=== PATIENT | female | born 2000 | race Caucasian/White ===

== ENCOUNTER 2022-11-04 10:55 | Day surgery (SDC) | payer OTHER ==
[~2022-11-04] VITALS: Ht 149.9 cm; Wt 63.0 kg
[2022-11-04] VITALS (11 sets, daily range): BP systolic 98–132; BP diastolic 68–88; PULSE 66–89; TEMP 97.6–98.6
--- NOTE | 2022-11-04 09:56 | NUR ---
0925-DR. VILLA OFFICE CALLED STATING PATIENT WAS SEEN AT [facility] ED FOR BILATERAL KIDNEY STONE OBSTRUCTIONS. DR. VILLA WILL DIRECT ADMIT PATIENT OUTPATIENT STATUS FOR PAIN CONTROL AND FOR PROCEDURE LATER THIS AFTERNOON. PT. COMING POV FROM [facility].
--- NOTE | 2022-11-04 12:00 | NUR ---
PT ON THE FLOOR APPROX 1130, AT BEDSIDE. PT IS A DIRECT ADMIT FROM [facility] AND DROVE SELF TO [facility]. PT ARRIVED WITH IV IN LEFT AC FROM [facility] ALREADY STARTED. PT A&OX4, LUNGS CTA AND REPORTS MILD FLANK PAIN THAT IS TOLERABLE AT THIS TIME. PT UPDATED ON TREAMTENT PLAN AND NOTIFIED OF NPO STATUS, VERBALIZED UNDERSTANDING. PT DENIES NEEDS AT THIS TIME AND ORIETNED TO ROOM. BED IN LOWEST POSITION AND CALL LIGHT IN REACH
--- NOTE | 2022-11-04 14:00 | NUR ---
PT REPORTS INCREASED FLANK PAIN RATING IT 5/10. DR VILLA CALLED WITH NO ANSWER. PT OFFERED HEAT PACK AND OTHER THERAPEUTIC TREATMENT FOR PAIN AND DENIES REPORTING THAT MEDS WILL HELP.
--- NOTE | 2022-11-04 14:30 | NUR ---
DR VILLA CALLED SECOND TIME WITH NO ANSWER. PT REPORTS PAIN IS TOLERABLE BUT HAS INCREASED AND MAKING PT UNCOMFORTABLE.
--- NOTE | 2022-11-04 17:37 | NUR ---
PT RESTING IN BED WITH SPOUSE.
--- NOTE | 2022-11-04 18:04 | NUR ---
LR MIGUEL FOR PROCEDURE. PT GIVEN TO CHANGE AND OR NURSE ON THE FLOOR TO TRANSFER PT VIA BED TO OR
--- NOTE | 2022-11-04 19:02 | NUR ---
REPORT GIVEN TO DOUG WALDRON
[2022-11-04] MEDS ORDERED: PYRIDIUM 100MG100 MG PO ×2 (19:38→20:07)
[2022-11-04] MEDS ORDERED: NORCO 325 MG-51 TAB PO ×2 (19:38→20:07)
--- NOTE | 2022-11-04 22:35 | NUR ---
ASSESSMENT COMPLETE FOR IRRIGATOR GRAVITY FLOW. PT STABLE POST-OP. VSS. PT DENIED GENERAL PAIN, CHEST PAIN, PALPITATIONS, SOB, N,V,D OR DIZZINESS. PT ABLE TO EAT, DRINK AND URINATE WITH NO ISSUES. DISCHARGE PAPERWORK AND INSTRUCTIONS REVIEWED WITH PT AND SPOUSE. ALL QUESTIONS AND CONCERNS ADDRESSED. IV TO LEFT AC REMOVED, CATHETER TIP INTACT. PT WHEELED OUT OF THE FACILITY BY AID, WITH HER BY HER SIDE.
== END 2022-11-04 22:35 | disposition home or self-care (01) ==
LOC: SDCO 10:55 → MEDICAL 10:57 → SDCO 10:57 → MEDICAL 11:00 → SDCO 18:00
DX: N20.1 Calculus of ureter (principal); F17.290 Nicotine dependence, other tobacco product, uncomplicated
CPT/HCPCS: OP; C1769; C2617; J0690; J1100; J2405; J2704; J2765; J3010; Q9967

== ENCOUNTER 2023-05-01 13:27 | Emergency (ER) | payer OTHER ==
[~2023-05-01] VITALS: Ht 149.9 cm; Wt 61.4 kg
[~2023-05-01 13:27] MED LIST: NORCO 325 MG-51 TAB PO; PYRIDIUM 100MG100 MG PO
[2023-05-01 13:32] VITALS: TEMP 98.6
[2023-05-01 15:00] LABS: PH 7.5 (5.0-8.5); URINE APPEARANCE CLEAR (CLEAR/HAZY); URINE BLOOD 3+ (NEGATIVE); URINE COLOR YELLOW (YELLOW); URINE GLUCOSE NEGATIVE (NEGATIVE); URINE KETONE NEGATIVE (NEGATIVE); URINE NITRATE NEGATIVE (NEGATIVE); URINE PROTEIN(semi-quant) NEGATIVE (NEGATIVE); URINE UROBILINOGEN 0.2 E.U/dL (0.2-1.0)
[2023-05-01 15:22] LABS: BASO # 0.1 K/mm3 (0.0-0.2); BASO % 0.4 % (0.0-2.0); EOS # 0.1 K/mm3 (0.0-0.7); EOS % 0.8 % (0.0-4.0); GRAN # 7.5 K/mm3 (1.4-6.5); GRAN % 66.9 % (42.2-75.2); HEMATOCRIT 41.9 % (37.0-47.0); HEMOGLOBIN 13.8 g/dl (12.5-16.0); LYMPH # 2.6 K/mm3 (1.2-3.4); LYMPH % 23.2 % (20.0-51.0); MEAN CELL VOLUME 90 fl (80.0-100.0); MEAN CORPUSCULAR HEMOGLOBIN 30 pg (27-31); MEAN CORPUSCULAR HGB CONC 33 g/dl (33.0-37.0); MEAN PLATELET VOLUME 10.1 fl (7.4-10.4); MONO # 0.9 K/mm3 (0.1-0.6); MONO % 8.3 % (1.7-9.3); PLATELET COUNT 297 K/mm3 (130-400); RED BLOOD COUNT 4.68 M/mm3 (4.10-5.30); REDCELL DISTRIBUTION WIDTH-CV 12.9 % (11.5-14.5)
[2023-05-01 15:39] LABS: COLLECTION METHOD CLEAN CATCH; URINE BACTERIA MANY /hpf (NONE SEEN)
[2023-05-01 15:42] LABS: ALBUMIN 4.3 gm/dL (3.5-5.0); BILIRUBIN,TOTAL 0.3 mg/dL (0.2-1.2); CALCIUM 9.8 mg/dL (8.4-10.2); CREATININE, serum 0.76 mg/dL (0.57-1.11); POTASSIUM 4.3 mmol/L (3.5-4.5); TOTAL PROTEIN 7.7 gm/dL (6.2-8.1)
[2023-05-01] MEDS ORDERED: AMOXICILLIN 8751 TAB PO (15:53)
[2023-05-01 15:56] VITALS: BP 104/76; PULSE 83
== END 2023-05-01 16:05 | disposition home or self-care (01) ==
LOC: COL.ER 13:27
PROVIDERS: Physician Assistant
DX: O23.41 Unspecified infection of urinary tract in pregnancy, first trimester (principal); N39.0 Urinary tract infection, site not specified; Z3A.00 Weeks of gestation of pregnancy not specified; Z87.442 Personal history of urinary calculi

== ENCOUNTER 2023-05-07 07:37 | Emergency (ER) | payer OTHER ==
[~2023-05-07] VITALS: Ht 149.9 cm; Wt 61.4 kg
[~2023-05-07 07:37] MED LIST changes: +AMOXICILLIN 8751 TAB PO
[2023-05-07 07:51] VITALS: BP 114/75; PULSE 88; TEMP 98.4
== END 2023-05-07 08:14 | disposition home or self-care (01) ==
LOC: COL.ER 07:37
DX: O20.0 Threatened abortion (principal); Z3A.01 Less than 8 weeks gestation of pregnancy